=== PATIENT | male | born 1965 | race Caucasian/White ===

== ENCOUNTER 2019-06-16 15:13 | Emergency (ER) | payer BC ==
[2019-06-16] MEDS ORDERED: Sodium Chloride 0.9% 1000 ML 1,000 ML IV STA (15:52)
[2019-06-16] MEDS ORDERED: DUONEB 0.5-3 MG/3 ml Neb IH ONE (15:55)
--- NOTE | 2019-06-16 15:55 | ERPHSYRPT ---
- History of Present Illness Time Seen by Provider: 06/16/19 15:30 Source: patient Exam Limitations: no limitations Patient Subjective Stated Complaint: pt here for cough, congestion, ear pain, chest discomfort when coughing.pt was seen at office and placed on antibotics and steriods,he states he does not feel better, Triage Nursing Assessment: pt alert, waked in, resp easy, skin w/d/p. has dry cough, no edema noted Physician History: Patient became sick 9 days ago. Patient diagnosed with pneumonia 3 days ago and started on Zithromax. Patient is not feeling any better. Timing/Duration: day(s) (9) Cough Quality/Degree: moderate Possible Cause: no prior episodes Modifying Factors: Improves With: exertion. Worsens With: coughing, deep breath Associated Symptoms: fever, chills, cough, nasal congestion, wheezing, No chest pain/soreness, No dizziness, No earache, No facial pain, No headache, No lightheadedness, No muscle aches, No nasal drainage, No shortness of breath, No sinus infection, No sore throat International travel in last 2 weeks: No Allergies/Adverse Reactions: No Known Drug Allergies Allergy (Verified 06/16/19 15:19) Home Medications: Azithromycin 250 mg DAILY 06/16/19 [History] Benzonatate 1 ea DAILY 06/16/19 [History] Prednisone 20 mg [Deltasone 20 mg] 20 mg DAILY 06/16/19 [History] Hx Tetanus, Diphtheria Vaccination/Date Given: Yes Hx Influenza Vaccination/Date Given: Yes Hx Pneumococcal Vaccination/Date Given: No Immunizations Up to Date: Yes - Review of Systems Constitutional: Fatigue, Malaise, No Fever, No Chills Eyes: No Eye Pain, No Eye Redness, No Vision Changes Ears, Nose, & Throat: Nose Congestion, Nose Discharge, No Throat Pain, No Throat Swelling Respiratory: No Cough, No Dyspnea Cardiac: No Chest Pain, No Edema, No Syncope Abdominal/Gastrointestinal: No Abdominal Pain, No Nausea, No Vomiting, No Diarrhea Genitourinary Symptoms: No Dysuria, No Frequency, No Hematuria, No Flank Pain Musculoskeletal: No Back Pain, No Neck Pain Skin: No Rash Neurological: No Dizziness, No Focal Weakness, No Headache, No Sensory Changes Psychological: No Symptoms Endocrine: No Symptoms Hematologic/Lymphatic: No Easy Bleeding, No Easy Bruising All Other Systems: Reviewed and Negative - Past Medical History Pertinent Past Medical History: No Other Medical History: hx of kidney stones many years ago - Past Surgical History Past Surgical History: No Neuro Surgical History: No Pertinent History Cardiac: No Pertinent History Respiratory: No Pertinent History Gastrointestinal: No Pertinent History Genitourinary: Other Musculoskeletal: No Pertinent History Male Surgical History: No Pertinent History Other Surgical History: kidney stones removed. tonsillectomy - Social History Smoking Status: Never smoker Exposure to second hand smoke: No Drug Use: none Patient Lives Alone: No - Nursing Vital Signs Nursing Vital Signs: Initial Vital Signs Temperature 99.2 F 06/16/19 15:25 Pulse Rate 81 06/16/19 15:25 Respiratory Rate 16 06/16/19 15:25 Blood Pressure 131/96 06/16/19 15:25 O2 Sat by Pulse Oximetry 96 06/16/19 15:25 Pain Scale Pain Intensity 1 - Physical Exam General Appearance: no apparent distress, alert Eye Exam: PERRL/EOMI, eyes nml inspection, No scleral icterus, No pale conjunctivae Ears, Nose, Throat Exam: normal ENT inspection, TMs normal, pharynx normal, moist mucous membranes Neck Exam: normal inspection, non-tender, supple, full range of motion Respiratory Exam: normal breath sounds, lungs clear, airway intact, accessory muscle use, wheezing, No respiratory distress, No diminished breath sounds, No prolonged expirations, No crackles/rales, No rhonchi Cardiovascular Exam: regular rate/rhythm, normal heart sounds, capillary refill <2 sec Gastrointestinal/Abdomen Exam: soft, No tenderness, No distention, No pulsatile mass, No rebound Back Exam: normal inspection, No CVA tenderness, No vertebral tenderness Extremity Exam: normal inspection, normal range of motion Neurologic Exam: alert, oriented x 3, cooperative, 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, normal mood/affect, sensation nml, No motor deficits Skin Exam: normal color, warm, dry, No rash, No petechiae Lymphatic Exam: No adenopathy SpO2 Interpretation: normal SpO2: 98 O2 Delivery: Room Air - Course Nursing assessment & vital signs reviewed: Yes EKG Interpreted by Me: RATE (69), Sinus Rhythm, NORMAL AXIS, NORMAL INTERVALS, NORMAL QRS, NORMAL ST-T, Other (negative previous EKG for comparison) - Radiology Exams Chest X-ray Interpretation: Interpreted by me, Reviewed by me, No Pneumonia, No Pneumothorax, Nml Alignment, Nml Heart Size, No Infiltrates, Nml Mediastinum, Other (clearing of previous right lung infiltrate/atelectasis) Ordered Tests: Active Orders 24 hr Category Date Time Status 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 Care 06/16/19 15:53 Active EKG-ER Only STAT Care 06/16/19 15:52 Active IV Insertion STAT Care 06/16/19 15:52 Active Pulse Oximetry (ED) STAT Care 06/16/19 15:52 Active CHEST 2 VIEWS (PA AND LAT) Stat Exams 06/16/19 15:53 Completed AMYLASE Stat Lab 06/16/19 16:10 Completed BLOOD CULTURE Stat Lab 06/16/19 16:45 Received CBC W DIFF Stat Lab 06/16/19 16:10 Completed CK-Creatinine Phosphokinase Stat Lab 06/16/19 16:10 Completed CMP Stat Lab 06/16/19 16:10 Completed CULTURE,URINE Stat Lab 06/16/19 16:18 Ordered LIPASE Stat Lab 06/16/19 16:10 Completed Lactic Acid Stat Lab 06/16/19 16:12 Completed Lactic Acid Stat Lab 06/16/19 18:22 Ordered MAGNESIUM Stat Lab 06/16/19 16:10 Completed Manual Differential NC Stat Lab 06/16/19 16:10 Completed NT PRO BNP Stat Lab 06/16/19 16:10 Completed PROTIME WITH INR Stat Lab 06/16/19 16:10 Completed PTT Stat Lab 06/16/19 16:10 Completed TROPONIN Q3H Lab 06/16/19 16:10 Completed TROPONIN Q3H Lab 06/17/19 01:00 Ordered TROPONIN Q3H Lab 06/17/19 04:00 Ordered UA W/RFX UR CULTURE Stat Lab 06/16/19 16:18 Completed VENOUS BLOOD GAS Urgent Lab 06/16/19 16:12 Completed Peak Expiratory Flow Rate ONCE RT 06/16/19 17:05 Active Respiratory Therapy Assessment DAILY RT 06/16/19 17:06 Active Medication Summary Discontinued Medications Generic Name Dose Route Start Last Admin Trade Name Freq PRN Reason Stop Dose Admin Albuterol/Ipratropium 3 ml 06/16/19 15:55 06/16/19 17:03 Duoneb 0.5-3 Mg/3 Ml Neb IH 01/02/20 15:56 3 ml STAT ONE Administration Sodium Chloride 1,000 mls @ 999 mls/hr 06/16/19 15:52 06/16/19 17:16 Sodium Chloride 0.9% 1000 Ml IV 06/16/19 16:52 Infused .Q1H1M STA Infusion Sodium Chloride Confirm 06/16/19 16:00 Sodium Chloride 0.9% 1000 Ml Administered 06/16/19 16:01 Dose 1,000 mls @ ud .ROUTE .STK-MED ONE Lab/Rad Data: Laboratory Result Diagrams 06/16/19 16:10 06/16/19 16:10 Laboratory Results 06/16/19 06/16/19 06/16/19 Range/Units 16:18 16:12 16:12 WBC (4.0-10.5) K/mm3 RBC (4.1-5.6) M/mm3 Hgb (12.5-18.0) gm/dl Hct (42-50) % MCV (78-100) fl MCH (26-32) pg MCHC (32-36) g/dl RDW (11.5-14.0) % Plt Count (150-450) K/mm3 MPV (6-9.5) fl Segmented Neutrophils (36.-66.) % Band Neutrophils (0.0-2.0) % Lymphocytes (Manual) (24-44) % Monocytes (Manual) (0.0-12.0) % Atypical Lymphocytes % Platelet Estimate (NORMAL) RBC Morphology PT (8.83-12.87) SECONDS INR (0.8-3.0) APTT (24.1-36.1) SECONDS pO2/FiO2 Ratio 21 % VBG pH 7.44 H (7.32-7.42) VBG pCO2 at Pat Temp 39 L (42-55) mm/Hg VBG pO2 at Pat Temp 107 H (25-40) mm/Hg VBG HCO3 26.5 (22-28) meq/L VBG O2 Sat (Ewa) 99 (95-100) VBG Base Excess 2.3 H (-2.0-2.0) VBG Hemoglobin 16.3 VBG Carboxyhemoglobin 3.5 (0.0-6.9) % T HGB POC Potassium 4.3 (3.5-5.1) Sodium (137-145) mmol/L Potassium (3.5-5.1) mmol/L Chloride (98-107) mmol/L Carbon Dioxide (22-30) mmol/L Anion Gap (5-15) MEQ/L BUN (9-20) mg/dL Creatinine (0.66-1.25) mg/dL Estimated GFR ML/MIN Glucose (74-106) mg/dL Lactic Acid 2.6 H (0.4-2.0) Calcium (8.4-10.2) mg/dL Magnesium (1.6-2.3) mg/dL Total Bilirubin (0.2-1.3) mg/dL AST (17-59) U/L ALT (0-50) U/L Alkaline Phosphatase (38-126) U/L Creatine Kinase (55-170) U/L Troponin I (0.000-0.034) ng/mL NT-Pro-B Natriuret Pep (0-900) pg/mL Serum Total Protein (6.3-8.2) g/dL Albumin (3.5-5.0) g/dL Amylase (30-110) U/L Lipase (23-300) U/L Urine Color YELLOW (YELLOW) Urine Appearance CLEAR (CLEAR) Urine pH 7.0 (5-6) Ur Specific [place] 1.016 (1.005-1.025) Urine Protein NEGATIVE (Negative) Urine Ketones NEGATIVE (NEGATIVE) Urine Blood NEGATIVE (0-5) Yonny/ul Urine Nitrite NEGATIVE (NEGATIVE) Urine Bilirubin NEGATIVE (NEGATIVE) Urine Urobilinogen NEGATIVE (0-1) mg/dL Ur Leukocyte Esterase NEGATIVE (NEGATIVE) Urine WBC (Auto) NONE (0-5) /HPF Urine RBC (Auto) NONE (0-2) /HPF U Epithel Cells (Auto) NONE (FEW) /HPF Urine Bacteria (Auto) NONE (NEGATIVE) /HPF Urine Mucus (Auto) SLIGHT (NEGATIVE) /HPF Urine Culture Reflexed ORDERED SEPARATELY (NO) Urine Glucose NEGATIVE (NEGATIVE) mg/dL 06/16/19 06/16/19 06/16/19 Range/Units 16:10 16:10 16:10 WBC (4.0-10.5) K/mm3 RBC (4.1-5.6) M/mm3 Hgb (12.5-18.0) gm/dl Hct (42-50) % MCV (78-100) fl MCH (26-32) pg MCHC (32-36) g/dl RDW (11.5-14.0) % Plt Count (150-450) K/mm3 MPV (6-9.5) fl Segmented Neutrophils (36.-66.) % Band Neutrophils (0.0-2.0) % Lymphocytes (Manual) (24-44) % Monocytes (Manual) (0.0-12.0) % Atypical Lymphocytes % Platelet Estimate (NORMAL) RBC Morphology PT 11.3 (8.83-12.87) SECONDS INR 1.00 (0.8-3.0) APTT 28.2 (24.1-36.1) SECONDS pO2/FiO2 Ratio % VBG pH (7.32-7.42) VBG pCO2 at Pat Temp (42-55) mm/Hg VBG pO2 at Pat Temp (25-40) mm/Hg VBG HCO3 (22-28) meq/L VBG O2 Sat (Ewa) (95-100) VBG Base Excess (-2.0-2.0) VBG Hemoglobin VBG Carboxyhemoglobin (0.0-6.9) % T HGB POC Potassium (3.5-5.1) Sodium 140 (137-145) mmol/L Potassium 4.2 (3.5-5.1) mmol/L Chloride 105 (98-107) mmol/L Carbon Dioxide 27 (22-30) mmol/L Anion Gap 12.6 (5-15) MEQ/L BUN 14 (9-20) mg/dL Creatinine 0.72 (0.66-1.25) mg/dL Estimated GFR > 60.0 ML/MIN Glucose 115 H (74-106) mg/dL Lactic Acid (0.4-2.0) Calcium 9.7 (8.4-10.2) mg/dL Magnesium 2.0 (1.6-2.3) mg/dL Total Bilirubin 0.60 (0.2-1.3) mg/dL AST 28 (17-59) U/L ALT 33 (0-50) U/L Alkaline Phosphatase 55 (38-126) U/L Creatine Kinase 55 (55-170) U/L Troponin I < 0.012 (0.000-0.034) ng/mL NT-Pro-B Natriuret Pep 57.8 (0-900) pg/mL Serum Total Protein 7.4 (6.3-8.2) g/dL Albumin 4.1 (3.5-5.0) g/dL Amylase 60 (30-110) U/L Lipase 123 (23-300) U/L Urine Color (YELLOW) Urine Appearance (CLEAR) Urine pH (5-6) Ur Specific [place] (1.005-1.025) Urine Protein (Negative) Urine Ketones (NEGATIVE) Urine Blood (0-5) Yonny/ul Urine Nitrite (NEGATIVE) Urine Bilirubin (NEGATIVE) Urine Urobilinogen (0-1) mg/dL Ur Leukocyte Esterase (NEGATIVE) Urine WBC (Auto) (0-5) /HPF Urine RBC (Auto) (0-2) /HPF U Epithel Cells (Auto) (FEW) /HPF Urine Bacteria (Auto) (NEGATIVE) /HPF Urine Mucus (Auto) (NEGATIVE) /HPF Urine Culture Reflexed (NO) Urine Glucose (NEGATIVE) mg/dL 06/16/19 Range/Units 16:10 WBC 14.8 H (4.0-10.5) K/mm3 RBC 5.52 (4.1-5.6) M/mm3 Hgb 15.4 (12.5-18.0) gm/dl Hct 44.5 (42-50) % MCV 80.6 (78-100) fl MCH 27.9 (26-32) pg MCHC 34.6 (32-36) g/dl RDW 13.0 (11.5-14.0) % Plt Count 348 (150-450) K/mm3 MPV 11.2 H (6-9.5) fl Segmented Neutrophils 88 H (36.-66.) % Band Neutrophils 4 H (0.0-2.0) % Lymphocytes (Manual) 5 L (24-44) % Monocytes (Manual) 1 (0.0-12.0) % Atypical Lymphocytes 2 % Platelet Estimate NORMAL (NORMAL) RBC Morphology NORMAL PT (8.83-12.87) SECONDS INR (0.8-3.0) APTT (24.1-36.1) SECONDS pO2/FiO2 Ratio % VBG pH (7.32-7.42) VBG pCO2 at Pat Temp (42-55) mm/Hg VBG pO2 at Pat Temp (25-40) mm/Hg VBG HCO3 (22-28) meq/L VBG O2 Sat (Ewa) (95-100) VBG Base Excess (-2.0-2.0) VBG Hemoglobin VBG Carboxyhemoglobin (0.0-6.9) % T HGB POC Potassium (3.5-5.1) Sodium (137-145) mmol/L Potassium (3.5-5.1) mmol/L Chloride (98-107) mmol/L Carbon Dioxide (22-30) mmol/L Anion Gap (5-15) MEQ/L BUN (9-20) mg/dL Creatinine (0.66-1.25) mg/dL Estimated GFR ML/MIN Glucose (74-106) mg/dL Lactic Acid (0.4-2.0) Calcium (8.4-10.2) mg/dL Magnesium (1.6-2.3) mg/dL Total Bilirubin (0.2-1.3) mg/dL AST (17-59) U/L ALT (0-50) U/L Alkaline Phosphatase (38-126) U/L Creatine Kinase (55-170) U/L Troponin I (0.000-0.034) ng/mL NT-Pro-B Natriuret Pep (0-900) pg/mL Serum Total Protein (6.3-8.2) g/dL Albumin (3.5-5.0) g/dL Amylase (30-110) U/L Lipase (23-300) U/L Urine Color (YELLOW) Urine Appearance (CLEAR) Urine pH (5-6) Ur Specific [place] (1.005-1.025) Urine Protein (Negative) Urine Ketones (NEGATIVE) Urine Blood (0-5) Yonny/ul Urine Nitrite (NEGATIVE) Urine Bilirubin (NEGATIVE) Urine Urobilinogen (0-1) mg/dL Ur Leukocyte Esterase (NEGATIVE) Urine WBC (Auto) (0-5) /HPF Urine RBC (Auto) (0-2) /HPF U Epithel Cells (Auto) (FEW) /HPF Urine Bacteria (Auto) (NEGATIVE) /HPF Urine Mucus (Auto) (NEGATIVE) /HPF Urine Culture Reflexed (NO) Urine Glucose (NEGATIVE) mg/dL - Progress Progress: re-examined Air Movement: good Progress Note: 01/02/20 19:34 Patient has no indication for inpatient admission with improved chest x-ray which most likely was atelectasis and not pneumonia. Patient is to finish his antibiotic as instructed and DuoNeb will be added. Blood Culture(s) Obtained: No Antibiotics given: No Counseled pt/family regarding: lab results, diagnosis, need for follow-up, rad results - Departure Departure Disposition: Home Clinical Impression: Atelectasis, Elevated blood pressure reading without diagnosis of hypertension Acute bronchitis Qualifiers: Bronchitis organism: unspecified organism Qualified Code(s): J20.9 - Acute bronchitis, unspecified Condition: Good Critical Care Time: No Referrals: CORKY HURLEY [Primary Care Provider] - 06/20/19 Instructions: Acute Bronchitis, Adult (DC), Cough, Adult (DC) Additional Instructions: Discharge/Care Plan VIGNESH WEI was seen on 06/16/19 in the Emergency Room. The patient was counseled regarding Diagnosis,Lab results, Imaging studies, need for follow up and when to return to the Emergency Room. Prescriptions given: DuoNeb Q 4hours prn Discharge Note I have spoken with the patient and family. I have explained the patient's condition, diagnosis and treatment plan based on the information available to me at this time. I have answered the patient's and family's questions and addressed any concerns. The patient and family have as good understanding of the patient's diagnosis, condition and treatment plan as can be expected at this point. The vital signs have been stable. The patient's condition is stable and appropriate for discharge from the emergency department. The patient will pursue further outpatient evaluation with the primary care physician or other designated or consulting physician as outlined in the discharge instructions. The patient and family are agreeable to this plan of care and follow-up instructions have been explained in detail. The patient and family have received these instruction. The patient and family are aware that any significant change in condition or worsening of symptoms should prompt an immediate return to this or the closest emergency department or call 911. Forms: Work/School Release Form Prescriptions: Albuterol/Ipratropium 3ml Neb* [DUONEB 0.5-3 MG/3 ml Neb] 3 ml NEBULIZE Q4H PRN PRN #1 box PRN Reason: Wheezing/Chest Congestion
[2019-06-16] MEDS ORDERED: Sodium Chloride 0.9% 1000 ML 1,000 ML ONE (16:00)
[2019-06-16 16:22] LABS: Lactic Acid 2.6 (0.4-2.0)
[2019-06-16 16:23] LABS: VBG BASE EXCESS 2.3 (-2.0-2.0); VBG CARBOXYHEMOGLOBIN 3.5 % T HGB (0.0-6.9); VBG HCO3- 26.5 meq/L (22-28); VBG HEMOGLOBIN 16.3; VBG POTASSIUM 4.3 (3.5-5.1); VBG pH 7.44 (7.32-7.42)
[2019-06-16 16:36] LABS: Hematocrit 44.5 % (42-50); Hemoglobin 15.4 gm/dl (12.5-18.0); Mean Cell Volume 80.6 fl (78-100); Mean Corpuscular Hemoglobin 27.9 pg (26-32); Mean Corpuscular Hgb Concent. 34.6 g/dl (32-36); Mean Platelet Volume 11.2 fl (6-9.5); Platelet Count 348 K/mm3 (150-450); Red Blood Count 5.52 M/mm3 (4.1-5.6); White Blood Count 14.8 K/mm3 (4.0-10.5)
[2019-06-16 16:38] LABS: Appearance CLEAR (CLEAR); Bilirubin NEGATIVE (NEGATIVE); Blood NEGATIVE Ery/ul (0-5); Glucose NEGATIVE (NEGATIVE); Ketones NEGATIVE (NEGATIVE); Leukocyte Esterase NEGATIVE (NEGATIVE); Mucus SLIGHT /HPF (NEGATIVE); Nitrite NEGATIVE (NEGATIVE); Protein,Urine Dip NEGATIVE (Negative); Specific Gravity 1.016 (1.005-1.025); Urobilinogen NEGATIVE mg/dL (0-1)
[2019-06-16 16:42] LABS: PROTIME 11.3 SECONDS (8.83-12.87)
[2019-06-16 16:45] LABS: PTT 28.2 SECONDS (24.1-36.1)
[2019-06-16 16:55] LABS: ALBUMIN 4.1 g/dL (3.5-5.0); ALKALINE PHOSPHATASE 55 U/L (38-126); AMYLASE 60 U/L (30-110); ANION GAP 12.6 MEQ/L (5-15); BLOOD UREA NITROGEN 14 mg/dL (9-20); CHLORIDE 105 mmol/L (98-107); CK-Creatinine Phosphokinase 55 U/L (55-170); Calcium 9.7 mg/dL (8.4-10.2); Carbon Dioxide 27 mmol/L (22-30); Creatinine 1 0.72 mg/dL (0.66-1.25); Glucose 115 mg/dL (74-106); LIPASE 123 U/L (23-300); NT PRO BNP 57.8 pg/mL (0-900); Potassium 4.2 mmol/L (3.5-5.1); SGOT/AST 28 U/L (17-59); SGPT/ALT 33 U/L (0-50); SODIUM 140 mmol/L (137-145); Total Protein 7.4 g/dL (6.3-8.2)
--- NOTE | 2019-06-16 17:06 | XRAY ---
Indication: Low-grade fever. Cough. Pneumonia. Comparison: June 13, 2019. PA/lateral chest remains hyperinflated with clearing of previous right lung infiltrate/atelectasis. Remaining heart and lungs normal. No new/acute findings.
[2019-06-16 18:23] LABS: ATYPICAL LYMPHS 2 %; BAND 4 % (0.0-2.0); Lymphocytes 5 % (24-44); Monocyte 1 % (0.0-12.0); Neutrophils 88 % (36.-66.); Platelet Estimate NORMAL (NORMAL); Total Cells Counted 100
[2019-06-16 19:10] VITALS: BP 128/95
[2019-06-16 19:36] VITALS: O2SAT 98
[2019-06-16 19:51] VITALS: PULSE 89
== END 2019-06-16 19:52 | disposition home or self-care (01) ==
LOC: ED 15:13
DX: J98.11 Atelectasis (principal)
CPT/HCPCS: 36000; 36415; 71046; 80053; 81001; 82150; 82550; 82805; 83605; 83690; 83735; 83880; 84484; 85025; 85610; 85730; 87040; 87086; 93005; 93041; 94150; 94640; 94760; 96360; 99284; A9270-GY